=== PATIENT | male | born 1955 | race African-American/Black ===

== ENCOUNTER → 2024-10-03 | Outpatient (CLI) | payer BC, MEDICARE ==
[~2024-10-03] VITALS: Ht 172.7 cm; Wt 81.6 kg
[2024-10-03] MEDS: REGADENOSON 0.4 MG/5 ML SYRG IV ONE ×2 (09:44→09:53)
--- NOTE | 2024-10-03 11:29 | DVHSR ---
APPROVED REPORT Exam: Nuclear Stress Test BMI: 0 Stress Test Details HR Max Heart Rate (APMHR): 151.921588 bpm Target HR (85% APMHR): 128.503061 bpm BP ECG Stress ECG Conclusion Resting images shows moderate intensity small to medium size of fixed defect mainly seen in the infer ior wall. This could represent old inferior scar versus diaphragmatic attenuation artifact. Stress images shows moderate intensity small to medium-sized fixed defect in the inferior wall which is better than the resting images, this again could represent diaphragmatic attenuation versus old in ferior scarring. Mildly reduced left ventricular systolic function at 46%. Impression: Inferior wall defect which could represent attenuation artifact versus inferior wall sca rring, no evidence of ischemia, mildly reduced left ventricular systolic function, low to intermediat e risk study. NM EXAM: Myocardial Perfusion REST/STRESS Imaging Protocol: Rest Tc-99m/Stress Tc-99m 1 day Resting Data Rest SPECT myocardial perfusion imaging was performed in supine position 60 minutes following the int ravenous injection of 13.3 mCi of Tc-99m Sestamibi. Time of rest injection: 0830 Time of rest imagin Administration Route: IV Administration Site: Right Hand Pharmacologic Stress Pharmacologic stress test was performed by injecting Regadenoson 0.4 mg IV push followed by the intra venous injection of 34.8 mCi of Tc-99m Sestamibi. Time of stress injection: 0944 Time of stress imagin Administration Route: IV Administration Site: Right Hand Gated Stress SPECT was performed 60 minutes after stress injection. The images were gated to evaluate regional wall motion and calculate left ventricular ejection fracti on. Stress only was performed in the Supine position. Nuclear Conclusion ECG Findings: negative for ischemia Clinical Findings: negative for ischemia Nuclear Findings: negative for ischemia Exercise Capacity: not assessed Left Ventricular Function: abnormal Risk Study: low Resting images shows moderate intensity small to medium size of fixed defect mainly seen in the infer ior wall. This could represent old inferior scar versus diaphragmatic attenuation artifact. Stress images shows moderate intensity small to medium-sized fixed defect in the inferior wall which is better than the resting images, this again could represent diaphragmatic attenuation versus old in ferior scarring. Mildly reduced left ventricular systolic function at 46%. Impression: Inferior wall defect which could represent attenuation artifact versus inferior wall sca rring, no evidence of ischemia, mildly reduced left ventricular systolic function, low to intermediat e risk study.
== END | disposition home or self-care (01) ==
LOC: XYW 07:59
PROVIDERS: ATTEND Student in an Organized Health Care Education/Training Program
DX: I25.2 Old myocardial infarction (principal)
CPT/HCPCS: 78452; 93017; A9500; J2785

== ENCOUNTER 2025-09-16 08:09 | Outpatient (CLI) | payer BC ==
[~2025-09-16] VITALS: Ht 152.4 cm; Wt 81.2 kg
[2025-09-16] MEDS: REGADENOSON 0.4 MG/5 ML SYRG IV ONE ×2 (09:57)
--- NOTE | 2025-09-17 07:08 | DVHSR ---
APPROVED REPORT Exam: Nuclear Stress Test Indication: Atypical CP BMI: 0 Stress Test Details Stress Test: Pharmacologic stress testing performed using 0.4 mg of regadenoson per 5 mL given IV over 10 seconds. HR Resting HR: 53 bpm Max Heart Rate (APMHR): 150.592948 bpm Max HR Achieved: 96 bpm Target HR (85% APMHR): 127.986142 bpm % of APMHR: 64.00 Recovery HR: 70 bpm BP Resting BP: 122/73 mmHg Recovery BP: 113/71 mmHg ECG Resting ECG: Sinus Bradycardia Clinical Reason for Termination: Completed protocol Nurse Comments Recieved pt. from [facility] [employer]. A/Ox4 on RA. Connected to director funeral, VS stable. PIV flushes well. Reviewed POC. Pt. verbalized understanding of procedure including risks and side effects, agrees for stress testing. Lexiscan stress test performed per protocol. [employer] administered Cardiolite. Pt. tolerated well. Pt. stable, no change on exam. VS returned to baseline. Transferred to [facility] via wheelchair w/ tech. Stress ECG Conclusion lvef 53% normal perfusion scan no severe ischemia NM EXAM: Myocardial Perfusion REST/STRESS Imaging Protocol: Rest Tc-99m/Stress Tc-99m 1 day Resting Data Rest SPECT myocardial perfusion imaging was performed in supine position 60 minutes following the intravenous injection of 8.3 mCi of Tc-99m Sestamibi. Time of rest injection: 08:55 Date: 09/16/2025 Time of rest imagin:55 Date: 09/16/2025 Administration Route: IV Administration Site: Right Arm Pharmacologic Stress Pharmacologic stress test was performed by injecting Regadenoson 0.4 mg IV push followed by the intravenous injection of 28.1 mCi of Tc-99m Sestamibi. Time of stress injection: 10:00 Date: 09/16/2025 Time of stress imagin:00 Date: 09/16/2025 Administration Route: IV Administration Site: Right Arm Gated Stress SPECT was performed 60 minutes after stress injection. The images were gated to evaluate regional wall motion and calculate left ventricular ejection fraction. Stress only was performed in the Supine position. Nuclear Conclusion Nuclear Findings: negative for ischemia lvef 53% normal perfusion scan no severe ischemia
== END 2025-09-16 17:00 | disposition home or self-care (01) ==
LOC: XYW 08:09
PROVIDERS: ATTEND Internal Medicine
DX: R00.1 Bradycardia, unspecified (principal); I25.118 Atherosclerotic heart disease of native coronary artery with other forms of angina pectoris
CPT/HCPCS: 78452; 93017; A9500; J2785